=== PATIENT | female | born 1960 | race Caucasian/White ===

== ENCOUNTER → 2017-06-04 | Outpatient (CLI) | payer BC ==
[~2017-06-04] MED LIST: AMOX875T20 PO; MULT-65 PO; PERC5TAB12 PO; PRED50 PO
--- NOTE | 2017-06-04 15:32 | RADRPT ---
EXAM DATE/TIME: 06/04/2017 15:24 [place] COMPARISON: No previous studies available for comparison. INDICATIONS : Evaluate for pneumonia, pneumothorax, or communicable disease. Pre op for D&C. MEDICAL HISTORY : None. SURGICAL HISTORY : None. ENCOUNTER: Initial ACUITY: 1 day PAIN SCORE: 0/10 LOCATION: Bilateral chest FINDINGS: PA and lateral views of the chest demonstrate the lungs to be symmetrically aerated without evidence of mass, infiltrate or effusion. The cardiomediastinal contours are unremarkable. Osseous structure s are intact. CONCLUSION: 1. No acute cardiopulmonary findings. Dea Cortez MD on June 04, 2017 at 15:30 Board Certified Radiologist. This report was verified electronically.
[2017-06-04 16:24] LABS: BACTERIA, URINE OCC /hpf; BLOOD, URINE SMALL (NEG); COMMENT (UR) CULT NOT INDICATED; CULTURE IF INDICATED CULT NOT INDICATED; GLUCOSE,URINE NEG (NEG); KETONE, URINE NEG (NEG); NITRITE,URINE NEG (NEG); SQUAMOUS EPITHELIAL CELL URINE <1 /hpf (0-5); URINE COLOR YELLOW (YELLW/STRAW)
[2017-06-04 16:27] LABS: HEMATOCRIT 40.4 % (35.0-46.0); MEAN CELL VOLUME 85.4 FL (80.0-100.0); MEAN CORPUSCULAR HEMOGLOBIN 28.5 PG (27.0-34.0); MEAN CORPUSCULAR HGB CONC 33.4 % (32.0-36.0); PLATELET COUNT 334 TH/MM3 (150-450); RED BLOOD COUNT 4.72 MIL/MM3 (4.00-5.30); RED CELL DISTRIBUTION WIDTH 13.9 % (11.6-17.2); REVIEW FLAG FINAL; WHITE BLOOD COUNT 7.9 TH/MM3 (4.0-11.0)
[2017-06-04 16:39] LABS: ALT (GPT) 25 U/L (10-53); ANION GAP 9 MEQ/L (5-15); AST (GOT) 12 U/L (15-37); BICARBONATE 29.1 MEQ/L (21.0-32.0); BLOOD UREA NITROGEN 12 MG/DL (7-18); CHLORIDE 103 MEQ/L (98-107); GLOMERULAR FILTRATION RATE 99 ML/MIN (>89); GLUCOSE,FASTING 79 MG/DL (74-99); POTASSIUM 3.5 MEQ/L (3.5-5.1); SODIUM (NA) 141 MEQ/L (136-145)
[2017-06-04 16:42] LABS: ALKALINE PHOSPHATASE 104 U/L (45-117); TOTAL BILIRUBIN ADULT 0.3 MG/DL (0.2-1.0)
--- NOTE | 2017-06-05 13:21 | EKG ---
Date Performed: 06/04/2017 Time Performed: 15:03:38 PTAGE: 57 years EKG: SINUS BRADYCARDIA BORDERLINE ECG NO PREVIOUS TRACING DOCTOR: Keven Krishnamurthy Interpretating Date/Time 06/05/2017 13:18:00
== END ==
LOC: CPRE 14:25
PROVIDERS: ATTEND Obstetrics & Gynecology
DX: Z01.812 Encounter for preprocedural laboratory examination (principal); Z01.810 Encounter for preprocedural cardiovascular examination; Z01.811 Encounter for preprocedural respiratory examination; N95.0 Postmenopausal bleeding; N84.0 Polyp of corpus uteri; R93.8 Abnormal findings on diagnostic imaging of other specified body structures
CPT/HCPCS: 36415; 71020; 80053; 81001; 85027; 93005

== ENCOUNTER → 2017-06-06 | Day surgery (SDC) | payer BC ==
[~2017-06-06] VITALS: Ht 167.6 cm; Wt 92.8 kg
[~2017-06-06] MED LIST changes: +ACETAMINOPHEN 1000 MG/100 ML 100 ML IV ONE; -AMOX875T20 PO; +CHLORHEXIDINE GLUCONATE 2 % 1 PACK (2 CLOTHS) TOPICAL PRN; +DEXAMETHASONE SOD PHOS 4 MG/ML VIAL IV ONE; +DO NOT ADM ANY ANTICOAGULANT DRUGS PRN; +INSULIN HUMAN REGULAR 1,000 UNITS/10 ML VIAL SQ PRN; +KETOROLAC TROMETHAMINE 30 MG/ML (IVP) VIAL IV PUSH ONE; +LACTATED RINGER'S 1000 ML INJ 1,000 ML IV ONE; +LACTATED RINGER'S 1000 ML IV PRN; +LIDOCAINE HCL 1% PF 5 ML AMPULE OTHER ONE; +METOPROLOL TARTRATE 25 MG TAB PO PRN; +MIDAZOLAM HCL 2 MG/2 ML VIAL ONE; +ONDANSETRON HCL 4 MG/2 ML VIAL IV PUSH ONE; +ONDANSETRON HCL 4 MG/2 ML VIAL IV PUSH PRN; +POVIDONE IODINE 5% (ANTISEPSIS KIT) 4 APPLICATIONS EACH NARE PRN; -PRED50 PO; +PROPOFOL 200 MG/20 ML AMP IV ONE; +SODIUM CHLORID 0.9% 500 ML IV PRN; +ePHEDrine/NS 25 MG/5 ML SYR IV ONE; +oxyCODONE/ACETAMINOPHEN 5 MG/325 MG TAB PO PRN
--- NOTE | 2017-06-06 11:43 | MP ---
cc: Rosario CHEATHAM MD DATE OF SURGERY 06/06/2017 PREOPERATIVE DIAGNOSIS 1. Postmenopausal bleeding 2. Endometrial polyp on endometrial biopsy POSTOPERATIVE DIAGNOSIS 1. Postmenopausal bleeding 2. Endometrial polyp on endometrial biopsy 3. Anterior submucous myoma PROCEDURE Examination under anesthesia, dilation and curettage of the uterus with the MyoSure, a hysteroscopic polypectomy and myomectomy. ANESTHESIA General SURGEON Rosario Cheatham MD FINDINGS On examination under anesthesia, the vagina was clean. The cervix was clean and without any lesions. The uterus was anteverted and anteflexed. The adnexa was negative for masses. The hysteroscopic exam revealed endometrial cavity which had a polyp on the left lateral sidewall which was completely removed and an anterior submucous myoma which was also resected. There were no suspicious lesions. COMPLICATIONS None COUNTS Correct ESTIMATED BLOOD LOSS Minimal CONDITION The patient tolerated the procedure well and recovery room in good condition. PROCEDURE IN DETAIL The patient was taken to the operating room, identified by name band and verbally given a general anesthetic, placed in the dorsal lithotomy position and prepped and draped in the usual sterile fashion for vaginal surgery. A time-out was taken and examination under anesthesia was carried out with the above findings. A speculum was placed into the vagina. The anterior lip of the cervix was grasped with a single-tooth tenaculum. The cervix was serially dilated without difficulty and the endometrial cavity was fully assessed. The ostia were both seen and there was a sidewall polyp and also a small anterior myoma which we had not seen. At this point, we hooked up the MyoSure device and resected that polyp and myoma in the usual fashion without any difficulty. Once this had been completed, we scanned the entire endometrium and there were no more polyps or lesions. At this point, the MyoSure hysteroscopic device was removed and a D&C was carried out with a #1 sharp curette. The pathology was sent together for pathologic diagnosis. At this point, all the instruments were removed. She tolerated the procedure well and went to the recovery room in good condition. MD DOUGLAS Thompson/NOHELIA /10:52 AM /11:26 AM
[2017-06-06 12:12] VITALS: BP 121/66; PULSE 56; RESP 16; TEMP 96.6; O2SAT 98
== END | disposition home or self-care (01) ==
LOC: HSDC 07:25
PROVIDERS: ATTEND Obstetrics & Gynecology
DX: N95.0 Postmenopausal bleeding (principal); N84.0 Polyp of corpus uteri; D25.0 Submucous leiomyoma of uterus; R93.8 Abnormal findings on diagnostic imaging of other specified body structures
CPT/HCPCS: 00952; 58558; 88305; J0131; J1100; J1885; J2250; J2405; J3010; J7120